=== PATIENT | male | born 1965 | race Caucasian/White ===

== ENCOUNTER 2017-03-11 16:09 | Emergency (ER) | payer OTHER ==
[2017-03-11 16:22] VITALS: BP 142/87; PULSE 95; TEMP 99.3; BMI 27.9
--- NOTE | 2017-03-11 17:42 | PDOC ---
[id number] 4d BACK PAIN Time Seen by Provider: 03/11/17 17:03 History Source: Patient Exam Limitations: No Limitations - History of Present Illness Initial Comments: 03/11/17 18:21 03/11/17 18:33 My Chief Complaint: lower back pain with radiation down posterior left leg with tingling down leg History of Present Illness: He was a 51 year old male with a history of asthma here today complaining of lower back pain worse on left side with radiation intermittently down posterior left buttocks to left ankle for the last 3 days. He reports that pain has gotten worse especially left sided radiating down left leg with sitting today. Patient has not taken anything for pain. Patient denies any incontinency or any saddle anesthesia. He does not have any foot drop patient is ambulating without limp. Patient reports the pain when he arrived here was a 9 and has lessened and is approximately a 6 presently. Occurred: reports: other (for last 3 days) Pain Location: reports: back (b/l lower worse on left with radiation down left buttock posterior leg to foot intermittent worse with sitting ) Method of Injury: Yes: unknown Modifying Factors: improves with: other (standing ) Loss of Consciousness: no loss of consciousness Associated Symptoms (Fall): muscle spasms Past History - Past Medical History Allergies/Adverse Reactions: Allergies Allergy/AdvReac Type Severity Reaction Status Date / Time No Known Allergies Allergy Verified 03/11/17 16:23 Home Medications: Ambulatory Orders Amoxicillin - [Amoxicillin 500mg Capsule -] 500 mg PO ASDIR 03/11/17 Naproxen [Naprosyn -] 500 mg PO BID PRN #14 tablet 03/11/17 Prednisone 5 mg PO ASDIR 03/11/17 Asthma: Yes Hypercholesterolemia: Yes - Psycho/Social/Smoking Cessation Hx Suicidal Ideation: No Smoking History: Current every day smoker Number of Cigarettes Smoked Daily: 20 Information on smoking cessation initiated: No Hx Alcohol Use: No Drug/Substance Use Hx: No Review of Systems - Review of Systems Able to Perform ROS?: Yes Constitutional: No: Symptoms Reported HEENTM: No: Symptoms Reported Respiratory: No: Symptoms reported Cardiac (ROS): No: Symptoms Reported ABD/GI: No: Symptoms Reported : No: Symptoms Reported Musculoskeletal: Yes: Back Pain (b/l lumbar sacral worse on left with intermittent radiation down buttock posterior left leg to foot worse with sitting, ) Integumentary: No: Symptoms Reported Neurological: Yes: Paresthesia (posterior left leg intermittently when sitting radiates from buttock to ankle). No: Weakness, Unsteady Gait *Physical Exam - Vital Signs Last Vital Signs Temp Pulse Resp BP Pulse Ox 99.3 F 95 H 18 142/87 96 03/11/17 16:18 03/11/17 16:18 03/11/17 16:18 03/11/17 16:18 03/11/17 16:18 - Physical Exam General Appearance: Yes: Appropriately Dressed Respiratory/Chest: positive: Lungs Clear, Normal Breath Sounds. negative: Chest Tender, Respiratory Distress Cardiovascular: positive: Regular Rhythm, Regular Rate, S1, S2 Musculoskeletal: positive: Normal Inspection, Decreased Range of Motion (from waist ). negative: CVA Tenderness, CVA Tenderness (R), CVA Tenderness (L), Muscle Spasm Extremity: positive: Normal Capillary Refill, Normal Inspection, Normal Range of Motion Integumentary: positive: Normal Color Neurologic: positive: Alert, Normal Response, Motor Strength 5/5 (legs b/l ), Respond to painful stimul (b/l legs), Responsive. negative: Numbness, Sensory Deficit (legs ) Medical Decision Making - Medical Decision Making 03/11/17 18:33 03/11/17 18:41 He was a 51 year old male with a history of asthma here today complaining of lower back pain worse on left side with radiation intermittently down posterior left buttocks to left ankle for the last 3 days. He reports that pain has gotten worse especially left sided radiating down left leg with sitting today. Patient has not taken anything for pain. Patient denies any incontinency or any saddle anesthesia. He does not have any foot drop patient is ambulating without limp. Patient reports the pain when he arrived here was a 9 and has lessened and is approximately a 6 presently. lumbar back pain with radiculopathy down left leg with paresthesia intermittent PLAN: toradol 60 mg IM now xray lumbar sacral spine no gross freya abnormality noted follow up with orthopedist naprosyn 500 mg bid prn pain #14 tabs feeling much better 03/11/17 19:18 03/11/17 19:33 *DC/Admit/Observation/Transfer Diagnosis at time of Disposition: Lumbar back pain with radiculopathy affecting left lower extremity - Discharge Dispostion Disposition: HOME Condition at time of disposition: Stable - Prescriptions Prescriptions: Naproxen [Naprosyn -] 500 mg PO BID PRN #14 tablet PRN Reason: Pain - Referrals Referrals: Ramsey Franklin MD [Staff Physician] - - Patient Instructions Additional Instructions: Return to emergency room if any numbness of private area or legs or any loss of control of bladder or bowel movement or worsening pain Follow up with Dr. Montanez orthopedist as soon as possible told him that she was seen here in the emergency room Avoid any strenuous activities or exercise Patient voiced understanding of discharge instructions and all questions were answered
[2017-03-11] MEDS ORDERED: KETOROLAC TROMETHAMINE 60 MG/2 ML VIAL IM ONE (18:20)
[2017-03-11] MEDS ORDERED: KETOROLAC TROMETHAMINE 60 MG/2 ML VIAL ONE (18:23)
== END 2017-03-11 20:56 | disposition home or self-care (01) ==
LOC: JERFT 16:09
PROC: 3E0233Z Introduction of Anti-inflammatory into Muscle, Percutaneous Approach (ICD-10-PCS; principal; 2017-03-11)
DX: M54.16 Radiculopathy, lumbar region (principal); J45.909 Unspecified asthma, uncomplicated; E78.00 Pure hypercholesterolemia, unspecified
CPT/HCPCS: 72100-TC; 96372; 99281-25

== ENCOUNTER 2017-11-11 14:53 | Emergency (ER) | payer OTHER ==
[2017-11-11 15:06] VITALS: BP 135/89; PULSE 114; TEMP 100.9; BMI 31.1
[2017-11-11] MEDS ORDERED: ALBUTEROL SO4 0.083% IH SOL 2.5 MG/3 ML VIAL.NEB. NEB ONE ×2 (15:07→15:13)
--- NOTE | 2017-11-11 15:07 | PDOC ---
Rapid Medical Evaluation Time Seen by Provider: 11/11/17 15:02 Medical Evaluation: Allergies Allergy/AdvReac Type Severity Reaction Status Date / Time No Known Allergies Allergy Verified 03/11/17 16:23 11/11/17 15:02 The patient presents with a chief complaint of: tmax 104. , cough, congestion, upper midsteranl chest I have performed a brief in-person evaluation of this patient. Pertinent physical exam findings: exp wheeze, febrile I have ordered the following: albuterol neb given in triage influenza sent The patient will proceed to the ED for further evaluation. Discharge Disposition - Diagnosis Fever - Referrals - Patient Instructions - Post Discharge Activity
[2017-11-11] MEDS ORDERED: predniSONE 20 MG TABLET (UD) ONE (16:19)
[2017-11-11] MEDS ORDERED: ALBUTEROL SO4 2.5/IPRATROPIUM 0.5 INH SOL 3 ML VIAL.NEB. NEB ONE ×2 (16:19→16:22)
[2017-11-11] MEDS ORDERED: predniSONE 20 MG TABLET (UD) PO ONE (16:22)
--- NOTE | 2017-11-11 16:23 | PDOC ---
History of Present Illness - General Chief Complaint: Cold Symptoms Stated Complaint: FEVER Time Seen by Provider: 11/11/17 15:02 History Source: Patient Exam Limitations: No Limitations - History of Present Illness Initial Comments: 11/11/17 16:33 Patient came to emergency Department for worsening cough, states had fever last night is uncertain as to number but states was high and has been coughing with thick yellow phlegm for 2 days. Has taken ibuprofen with minimal resolved Timing/Duration: reports: just prior to arrival Severity: reports: mild, moderate Modifying Factors: improves with: coughing Associated Symptoms: reports: cough, fever/chills, headache, nasal congestion, nasal drainage Past History - Travel Traveled outside of the country in the last 30 days: No Close contact w/someone who was outside of country & ill: No - Past Medical History Allergies/Adverse Reactions: Allergies Allergy/AdvReac Type Severity Reaction Status Date / Time aspirin AdvReac Verified 11/11/17 15:03 Home Medications: Ambulatory Orders Albuterol 0.083% Nebulizer Camille [Ventolin 0.083% Nebulizer Soln -] 1 neb NEB Q4H PRN #30 vial 11/11/17 Albuterol Sulfate Inhaler - [Ventolin HFA Inhaler -] 1 - 2 inh PO Q4H #1 inhaler 11/11/17 Azithromycin [Zithromax -] 250 mg PO UTDICT #6 tab 11/11/17 Guaifenesin [Mucinex -] 600 mg PO BID 11/11/17 Prednisone [Deltasone -] 20 mg PO BID #8 tablet 11/11/17 Asthma: Yes COPD: No Hypercholesterolemia: Yes - Suicide/Smoking/Psychosocial Hx Smoking History: Current every day smoker Number of Cigarettes Smoked Daily: 20 Information on smoking cessation initiated: No Hx Alcohol Use: No Drug/Substance Use Hx: No Review of Systems - Review of Systems Able to Perform ROS?: Yes Is the patient limited Mohawk proficient: Yes Constitutional: Yes: Symptoms Reported, See HPI, Fever, Loss of Appetite, Malaise HEENTM: Yes: Symptoms Reported, See HPI, Nose Congestion, Difficulty Swallowing Respiratory: Yes: Symptoms reported, See HPI, Cough, Orthopnea, Wheezing Musculoskeletal: Yes: Symptoms Reported Integumentary: Yes: Symptoms Reported All Other Systems: Reviewed and Negative *Physical Exam - Vital Signs Last Vital Signs Temp Pulse Resp BP Pulse Ox 100.9 F H 114 H 19 135/89 96 11/11/17 15:03 11/11/17 15:03 11/11/17 15:03 11/11/17 15:03 11/11/17 15:03 - Physical Exam General Appearance: Yes: Nourished, Appropriately Dressed HEENT: positive: SHASHANK, TMs Normal, Rhinorrhea, Sinus Tenderness. negative: Normal ENT Inspection, Pharynx Normal (mild erythema with thick yellow white drainage noted) Neck: positive: Supple, Lymphadenopathy (R), Lymphadenopathy (L) Respiratory/Chest: positive: Rhonchi (bilateral), Wheezing. negative: Lungs Clear Cardiovascular: positive: Regular Rhythm Gastrointestinal/Abdominal: positive: Soft. negative: Tender Extremity: positive: Normal Capillary Refill, Normal Inspection, Normal Range of Motion Integumentary: positive: Dry, Warm, Pale Neurologic: positive: member services representative II-XII NML intact, Fully Oriented, Alert, Normal Mood/ Affect, Normal Response, Motor Strength 04/04 ED Treatment Course - ADDITIONAL ORDERS Additional order review: 11/11/17 15:07 Influenza Types A,B Antigen (ZEINA) - Final Nasopharyngeal Swab - Final - Medications Given in the ED: ED Medications Discontinued Medications Generic Name Dose Route Start Last Admin Trade Name Freq PRN Reason Stop Dose Admin Albuterol Sulfate 1 amp 11/11/17 15:07 11/11/17 16:21 Ventolin 0.083% Nebulizer Soln - NEB 11/11/17 15:08 1 amp ONCE ONE Administration Albuterol Sulfate 1 amp 11/11/17 15:13 11/11/17 15:10 Ventolin 0.083% Nebulizer Soln - NEB 11/11/17 15:14 1 amp NOW ONE Administration Progress Note - Progress Note Progress Note: Bronchitis, will treat with Z-Robert, *DC/Admit/Observation/Transfer Diagnosis at time of Disposition: Fever - Discharge Dispostion Disposition: HOME Condition at time of disposition: Stable Admit: No - Referrals - Patient Instructions Printed Discharge Instructions: DI for Acute Bronchitis, DI for Viral Upper Respiratory Infection-Child Additional Instructions: Rest, drink lots of fluids: Teas, water, soups, Pedialyte Saltwater gargles Steamy showers/seem to face break up mucus Avoid contact with others until fevers and cough resolved Lots of handwashing and good hygiene Continue [id number] medications for symptomatic relief Tylenol or Motrin for fever and pain Continue albuterol nebulizers every 4-6 hours for the next 2 days then as needed for continued cough Prednisone as directed until completed Azithromyosin as directed Stop smoking Followup with private physician in one to 2 days Return to emergency department / pediatric hospital for worsened symptoms, fevers, dehydration - Post Discharge Activity Forms/Work/School Notes: Back to Work
== END 2017-11-11 16:56 | disposition home or self-care (01) ==
LOC: JERFT 14:53
PROC: 3E0F7GC Introduction of Other Therapeutic Substance into Respiratory Tract, Via Natural or Artificial Opening (ICD-10-PCS; principal; 2017-11-11)
PROC: 3E0F7GC Introduction of Other Therapeutic Substance into Respiratory Tract, Via Natural or Artificial Opening (ICD-10-PCS; 2017-11-11)
DX: J20.9 Acute bronchitis, unspecified (principal); B97.89 Other viral agents as the cause of diseases classified elsewhere
CPT/HCPCS: 87804; 99281-25

== ENCOUNTER 2024-10-18 09:42 | Inpatient (IN) | payer OTHER ==
[2024-10-18 11:36] LABS: EOS % 4.1 % (0-4.5); HEMATOCRIT 42.2 % (35.4-49); HEMOGLOBIN 14.5 GM/dL (11.7-16.9); LYMPH % 20.9 % (8-40); MCH 28.6 pg (25.7-33.7); MCHC 34.3 g/dl (32.0-35.9); MEAN CELL VOLUME 83.5 fl (80-96); MEAN PLT VOLUME 7.8 fl (7.5-11.1); MONO % 9.8 % (3.8-10.2); NEUT % 64.2 % (42.8-82.8); PLATELET COUNT 427 10^3/uL (134-434); RBC 5.06 M/mm3 (4.00-5.60); RDW 14.3 % (11.9-15.9); WHITE BLOOD COUNT 11.1 K/mm3 (4.0-10.0)
[2024-10-18 11:57] LABS: POTASSIUM 4.5 mmol/L (3.5-5.1)
[2024-10-18 11:58] LABS: CALCIUM 9.4 mg/dL (8.5-10.1)
[2024-10-18 12:00] LABS: ALBUMIN 3.7 g/dl (3.4-5.0); BLOOD UREA NITROGEN 12.9 mg/dL (7-18)
[2024-10-18 12:04] LABS: BILIRUBIN,TOTAL 0.6 mg/dL (0.2-1); TOT PROT 7.5 g/dl (6.4-8.2)
[2024-10-18] MEDS ORDERED: CEPHALEXIN MONOHYDRATE 500 MG CAPSULE (UD) ONE (12:58)
[2024-10-18] MEDS ORDERED: SULFAMETHOXAZOLE/TRIMETHOPRIM 800MG/160MG D.S. TABLET ONE (12:59)
[2024-10-18] MEDS: CEPHALEXIN MONOHYDRATE 500 MG CAPSULE (UD) PO ONE (13:00)
[2024-10-18] MEDS: SULFAMETHOXAZOLE/TRIMETHOPRIM 800MG/160MG D.S. TABLET PO ONE (13:00)
[2024-10-18] MEDS ORDERED: ACETAMINOPHEN 325 MG TABLET (FP) PO PRN (14:42)
[2024-10-18] MEDS ORDERED: ALBUTEROL SO4 0.042% IH SOL 1.25 MG/3 ML VIAL.NEB NEB PRN (14:42)
[2024-10-18] MEDS ORDERED: oxyCODONE HCL 5 MG TABLET PO PRN (14:42)
[2024-10-18 15:37] VITALS: BMI 35.8
[2024-10-18] MEDS: AMPICILLIN NA/SULBACTAM NA 3 GM in SODIUM CHLORIDE 100 ML IVPB SCH (15:54)
[2024-10-19 08:38] LABS: HEMATOCRIT 38.1 % (35.4-49); HEMOGLOBIN 13.3 GM/dL (11.7-16.9); MCH 29.1 pg (25.7-33.7); MCHC 34.8 g/dl (32.0-35.9); MEAN CELL VOLUME 83.6 fl (80-96); MEAN PLT VOLUME 8.2 fl (7.5-11.1); PLATELET COUNT 356 10^3/uL (134-434); RBC 4.55 M/mm3 (4.00-5.60); RDW 14.2 % (11.9-15.9); WHITE BLOOD COUNT 7.8 K/mm3 (4.0-10.0)
[2024-10-19 08:57] LABS: POTASSIUM 4.5 mmol/L (3.5-5.1)
[2024-10-19 09:02] LABS: ALBUMIN 3.4 g/dl (3.4-5.0); BLOOD UREA NITROGEN 11.4 mg/dL (7-18); CALCIUM 8.8 mg/dL (8.5-10.1)
[2024-10-19 09:06] LABS: BILIRUBIN,TOTAL 0.8 mg/dL (0.2-1); TOT PROT 6.8 g/dl (6.4-8.2)
[2024-10-19] MEDS: CEFAZOLIN SODIUM 2 GM VIAL IVPB ONE (10:54)
[2024-10-19] MEDS ORDERED: SUCCINYLCHOLINE CHLORIDE 200 MG/10 ML SYRINGE ONE (15:08)
[2024-10-19] MEDS ORDERED: MIDAZOLAM HCL 2 MG/2 ML SINGLE DOSE VIAL ONE (15:10)
[2024-10-19] MEDS ORDERED: PROPOFOL 20 ML ONE ×2 (15:11→15:35)
[2024-10-19] MEDS ORDERED: ONDANSETRON 4 MG/2 ML VIAL ONE (15:12)
[2024-10-19] MEDS ORDERED: DEXAMETHASONE SOD PHOSPHATE 4 MG/1 ML VIAL ONE (15:12)
[2024-10-19] MEDS ORDERED: ALBUTEROL SO4 HFA INHALER IH ONE (15:25)
[2024-10-19] MEDS ORDERED: GLYCOPYRROLATE 0.2 MG/1 ML VIAL ONE (15:38)
[2024-10-19] MEDS ORDERED: ROCURONIUM BROMIDE 50 MG/5 ML SYRINGE ONE (15:43)
[2024-10-19] MEDS ORDERED: METHYLENE BLUE 50 MG/10 ML AMPUL ONE (15:55)
[2024-10-19] MEDS: METHYLENE BLUE 1% 10 MG/1 ML VIAL NR ONE (15:59)
[2024-10-19] MEDS ORDERED: SUGAMMADEX SODIUM 200 MG/2 ML VIAL ONE ×2 (16:09→16:27)
[2024-10-19] MEDS ORDERED: ONDANSETRON 4 MG/2 ML VIAL IVPUSH PRN (16:41)
[2024-10-19] MEDS ORDERED: ALBUTEROL SO4 0.042% IH SOL 1.25 MG/3 ML VIAL.NEB NEB PRN (17:06)
[2024-10-19] MEDS ORDERED: oxyCODONE HCL 5 MG TABLET PO PRN (17:06)
[2024-10-19] MEDS ORDERED: ACETAMINOPHEN 325 MG TABLET (FP) PO PRN (17:06)
[2024-10-19] MEDS: ACETAMINOPHEN 1000 MG/100 ML BAG IVPB ONE (17:08)
[2024-10-19] MEDS: LACTATED RINGERS SOLUTION 1,000 ML IV SCH (21:30)
[2024-10-19] MEDS: AMPICILLIN NA/SULBACTAM NA 3 GM in SODIUM CHLORIDE 100 ML IVPB SCH (21:30)
[2024-10-20 08:59] LABS: HEMATOCRIT 42.2 % (35.4-49); HEMOGLOBIN 13.8 GM/dL (11.7-16.9); MCH 27.8 pg (25.7-33.7); MCHC 32.7 g/dl (32.0-35.9); MEAN PLT VOLUME 8.4 fl (7.5-11.1); PLATELET COUNT 488 10^3/uL (134-434); RBC 4.96 M/mm3 (4.00-5.60); WHITE BLOOD COUNT 16.2 K/mm3 (4.0-10.0)
[2024-10-20 09:08] LABS: POTASSIUM 5.3 mmol/L (3.5-5.1)
[2024-10-20 09:09] LABS: CALCIUM 9.7 mg/dL (8.5-10.1)
[2024-10-20 09:10] LABS: ALBUMIN 3.6 g/dl (3.4-5.0); BLOOD UREA NITROGEN 13.9 mg/dL (7-18); MAGNESIUM 2.4 mg/dL (1.8-2.4)
[2024-10-20 09:15] LABS: BILIRUBIN,TOTAL 0.5 mg/dL (0.2-1); TOT PROT 7.6 g/dl (6.4-8.2)
[2024-10-20 15:14] VITALS: BP 111/61; PULSE 79; RESP 16; TEMP 98
== END 2024-10-20 17:24 | disposition home or self-care (01) | DRG 383 ==
LOC: JERFT 09:42 → JERBED 14:12 → OBSVTOIN 14:42 → J7W 15:17
PROVIDERS: ADMIT Family Medicine; ATTEND Family Medicine
PROC: 0JB90ZZ Excision of Buttock Subcutaneous Tissue and Fascia, Open Approach (ICD-10-PCS; principal; 2024-10-19 13:00)
DX: L05.01 Pilonidal cyst with abscess (principal); L03.317 Cellulitis of buttock; L05.02 Pilonidal sinus with abscess; E66.9 Obesity, unspecified; Z68.35 Body mass index [BMI] 35.0-35.9, adult
CPT/HCPCS: 36415; 74177-TC; 80053; 83735; 85025; 85027; 88304-TC; 94760; 99285-25; G0378; J0131; Q9968